=== PATIENT | female | born 1985 | race Caucasian/White ===

== ENCOUNTER 2016-08-14 05:52 | Outpatient (CLI) | payer OTHER ==
[~2016-08-14] VITALS: Ht 162.6 cm; Wt 82.1 kg
[~2016-08-14 05:52] MED LIST: AC500T PO; ACET-2267 PO; ACHD5005 PO; AMOX500C2 PO; AMX500CIP PO; Aleve; BCP; Benadryl; CIPR500T78 PO; CPR250T PO; DIPH25CA79 PO; FAMO-119 PO; HYDR-2941 PO; HYDR-34; HYDR-3812 PO; HYDR-757 PO; IBP600T1 PO; IBUP-15 PO; IBUP-1780 PO; LORA10TA76 PO; METR500T PO; NAPR500T PO; OMEP-10 PO; OXYC-109 PO; OXYC-12 PO; PHEN37.555 PO; PROP1TAB77; SULF1TAB35 PO; TRM50T PO; ZLP10T PO; prednisone
[2016-08-14] MEDS ORDERED: HYOS0.1216 PO (16:31)
[2016-08-14] MEDS ORDERED: ONDN4T PO (16:31)
[2016-08-14] MEDS ORDERED: HYDR-3812 PO (16:31)
[2016-08-14] MEDS ORDERED: OMEP20TA7 PO (16:31)
[2016-08-14] MEDS ORDERED: ESCI10TA PO (16:31)
[2016-08-14] MEDS ORDERED: FAMO-119 PO (16:31)
== END 2016-08-14 16:33 ==
LOC: PREOP 05:52
PROVIDERS: ATTEND Surgery
DX: Z01.818 Encounter for other preprocedural examination (principal); K21.9 Gastro-esophageal reflux disease without esophagitis; R13.10 Dysphagia, unspecified

== ENCOUNTER 2016-08-25 09:48 | Day surgery (SDC) | payer OTHER ==
[~2016-08-25] VITALS: Ht 162.6 cm; Wt 82.1 kg
[~2016-08-25 09:48] MED LIST changes: +ESCI10TA PO; +HYOS0.1216 PO; +OMEP20TA7 PO; +ONDN4T PO
[2016-08-25] MEDS ORDERED: FLUMAZENIL (ROMAZICON) 0.1 MG/ML 5 ML VIAL INJ PRN (10:00)
[2016-08-25] MEDS ORDERED: NS IV 500 ML 500 ML IV ONE (10:00)
[2016-08-25] MEDS ORDERED: NALOXONE 0.4 MG/ML 1 ML (NARCAN) VIAL IVP PRN (10:00)
[2016-08-25 10:04] VITALS: BP 117/86
[2016-08-25] MEDS ORDERED: CLIN300C11 PO (10:08)
--- NOTE | 2016-08-25 10:09 | Conscious Sedation/ASA ---
Conscious Sedation Pre-Proced ASA Class: 2 Airway Mallampati Classification: ([place] appropriate class) I. II. III, IV Lungs Heart ASA score ASA 1: a normal healthy patient ASA 2: a patient with a mild systemic disease (mid diabetes, controlled hypertension, obesity ASA 3: a patient with a severe systemic disease that limits activity (angina , COPD, prior Myocardial infarction) ASA 4: a patient with an incapacitating disease that is a constant threat to life (CHF, renal failure) ASA 5: a moribund patient not expected to survive 24 hrs. (ruptured aneurysm) ASA 6: a declared brain patient whose organs are being harvested. For emergent operations, add the letter E after the classification Grade 1 Sedation Plan: Discussed options with patient/fam Note The patient is an appropriate candidate to undergo the planned procedure, sedation, and anesthesia. The patient immediately re-assessed prior to indication. BJ KAUFMAN MD Aug 25, 2016 10:09 am
[2016-08-25] MEDS ORDERED: fentaNYL INJECTION 100 MCG/2 ML AMP ONE (11:16)
[2016-08-25] MEDS ORDERED: MIDAZOLAM 2 MG/2 ML (VERSED) VIAL ONE ×4 (11:16→11:17)
[2016-08-25] MEDS: MIDAZOLAM 2 MG/2 ML (VERSED) VIAL IVP PRN ×4 (11:20→11:29)
[2016-08-25] MEDS: fentaNYL INJECTION 100 MCG/2 ML AMP IVP PRN ×2 (11:21→11:28)
--- NOTE | 2016-08-25 11:37 | Endoscopy Procedure Report ---
Endoscopy Report Date: Aug 25, 2016 Preoperative Diagnosis: epigastric pain. Dysphagia Study Performed: Upper Endoscopy Procedure Instrument: Endoscope Endo Procedure/Findings Findings 1.: Hiatal Hernia, Gastric Ulcer, Gastritis Recommendations: Recommendations: 1.: Start Medication(s) Copy Copies To 1: ALONZO GOLDBERG MD, XAVIER M MD Aug 25, 2016 11:37 am
--- NOTE | 2016-08-25 11:39 | Discharge Inst-Simple/Standard ---
Discharge Inst-Standard Discharge Medications New, Converted or Re-Newed RX: Other Patient Instructions/Follow Up Plan of Care/Instructions/FU: follow-up with her physician Activity as Tolerated: Yes Discharge Diet: No Restrictions BJ KAUFMAN MD Aug 25, 2016 11:39 am
--- NOTE | 2016-08-25 12:08 | OPERATIVE REPORT ---
DATE OF SERVICE: 08/25/2016 PROCEDURE: Upper gastrointestinal endoscopy with antral biopsy. SURGEON: Dr. Kaufman. INDICATIONS FOR PROCEDURE: This patient came in for upper endoscopy to evaluate epigastric pain and intermittent dysphagia. Informed consent was obtained after reviewing the procedure in detail. DESCRIPTION OF PROCEDURE: She was placed in left lateral decubitus position, and her vital signs were monitored. Conscious sedation was achieved using Versed and Fentanyl. The flexible gastroscope was introduced down the esophagus, past the stomach, into the proximal duodenum. FINDINGS: ESOPHAGUS: 1. Quite tortuous, normal variation in anatomy. 2. Grade 2 esophagitis. STOMACH: 1. Multiple distal gastric ulcers. 2. Severe gastritis in a streaky fashion involving the distal stomach. Antral biopsy was obtained for Helicobacter. DUODENDUM: A few, shallow erosions were found along the first part. She tolerated the procedure well and was taken back to the nursing area in a stable condition. IMPRESSION: Epigastric pain, dysphagia. No stricture. Esophagitis and gastric ulcers. Helicobacter status pending. Job ID: [id number] DocumentID: [id number] Dictated Date: 08/25/2016 11:34:38 [employer]aker Date: 08/25/2016 12:08:25 Dictated By: BJ KAUFMAN MD [facility]
[2016-08-25 12:10] VITALS: BP 117/79
[2016-08-25 12:45] VITALS: BP 111/56
[2016-08-25 12:57] VITALS: BP 111/56
== END 2016-08-25 13:00 | disposition home or self-care (01) ==
LOC: ENDO 09:48
PROVIDERS: ATTEND Surgery
DX: K25.9 Gastric ulcer, unspecified as acute or chronic, without hemorrhage or perforation (principal); K29.70 Gastritis, unspecified, without bleeding; K20.9 Esophagitis, unspecified
CPT/HCPCS: 84703; 88305

== ENCOUNTER 2016-09-04 14:09 | Emergency (ER) | payer SELFPAY ==
[~2016-09-04] VITALS: Ht 162.6 cm; Wt 83.0 kg
[~2016-09-04 14:09] MED LIST changes: +CLIN300C11 PO
[2016-09-04] MEDS ORDERED: ESOM20TA PO (14:23)
[2016-09-04 14:48] LABS: BASOPHILS % (AUTO) 0 % (0-10); EOSINOPHILS # (AUTO) 0.1 10^3/uL (0.0-0.3); EOSINOPHILS % (AUTO) 1 % (0-10); LYMPHOCYTES # (AUTO) 2.2 X 10^3 (1.0-4.0); LYMPHOCYTES % (AUTO) 37 % (12-44); MEAN CORPUSCULAR HEMOGLOBIN 31 PG (25-34); MEAN CORPUSCULAR HGB CONC 34 G/DL (32-36); MEAN CORPUSCULAR VOLUME 92 FL (80-99); MEAN PLATELET VOLUME 9.8 FL (7.4-10.4); MONOCYTES # (AUTO) 0.7 X 10^3 (0.0-1.0); MONOCYTES % (AUTO) 11 % (0-12); NEUTROPHILS % (AUTO) 51 % (42-75); PLATELET COUNT 253 10^3/uL (130-400); RED CELL DISTRIBUTION WIDTH 12.3 % (10.0-14.5); WHITE BLOOD COUNT 5.9 10^3/uL (4.3-11.0)
[2016-09-04 15:13] LABS: ALANINE AMINOTRANSFERASE 27 U/L (0-55); ALBUMIN 4.7 G/DL (3.2-4.5); ANION GAP 5 MMOL/L (5-14); ASPARTATE AMINO TRANSFERASE 16 U/L (5-34); BLOOD UREA NITROGEN 13 MG/DL (7-18); BUN/CREATININE RATIO 18; CALCIUM 9.4 MG/DL (8.5-10.1); CARBON DIOXIDE 29 MMOL/L (21-32); CHLORIDE 106 MMOL/L (98-107); CREATININE SERUM 0.74 MG/DL (0.60-1.30); GFR ESTIMATED > 60; GLUCOSE 86 MG/DL (70-105); LIPASE 31 U/L (8-78); POTASSIUM 3.8 MMOL/L (3.6-5.0); SODIUM 140 MMOL/L (135-145)
--- NOTE | 2016-09-04 15:29 | ED Abdominal Pain ---
General Chief Complaint: Abdominal/GI Problems Stated Complaint: ABD PAIN Nursing Triage Note: C/O EPIGASTRIC PAIN X 3 DAYS, PATIENT REPORTS HAD AN UPPER GI DONE ON THE August AND TOLD SHE HAD ULCERS AND WAS GIVEN NEXIUM Sepsis Screen: No Definite Risk Source of Information: Patient Exam Limitations: No Limitations History of Present Illness Time Seen By Provider: 15:24 Initial Comments The patient is a 31-year-old white female who presents to the emergency room with a tale of WOE beginning 2 years ago. 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 She reports that several weeks ago they were in [place] and she had an attack which made her think she was having a heart attack. She remembered reading that this could in fact be caused by esophageal spasm and even respond to nitroglycerin. She went to a [place] emergency room where she was worked up. She was assured that there was no heart attack and states that she was doped up in order to allow her to return home. She was then seen by her physician and referred to Dr. Fairbanks who performed an upper endoscopy. She also notes that she was told in [place] that she had a polyp in her gallbladder and perhaps that was causing a problem. Dr. Fairbanks reported that the esophagus had considerable inflammation and even ulcers. She was placed on Nexium by ALONZO Seaman and has taken it for a week without any improvement in her symptomatology. She reports that she feels very bloated at this time. There has been no change in her bowel movements. Timing/Duration: 1 Day, Other (2 years) Severity/Quality: Moderate, Severe Location: RUQ, Epigastric Modifying Factors: Improves With Analgesics, Improves With Antacids Allergies and Home Medications Allergies Coded Allergies: No Known Drug Allergies (Verified , 04/09/07) Home Medications Escitalopram Oxalate 10 Mg Tablet, 10 MG PO DAILY, (Reported) Esomeprazole Magnesium 20 Mg Tablet.dr, 20 MG PO, (Reported) Review of Systems Constitutional: see HPI EENTM: No Symptoms Reported Respiratory: No Symptoms Reported Cardiovascular: No Symptoms Reported Gastrointestinal: See HPI, Abdomen Distended, Blood Streaked Stools, Difficulty Swallowing Genitourinary: No Symptoms Reported Musculoskeletal: no symptoms reported Skin: no symptoms reported Psychiatric/Neurological: No Symptoms Reported Endocrine: No Symptoms Reported Hematologic/Lymphatic: No Symptoms Reported Past Ujsiskt-Agvjdq-Yxaxgm Hx Patient Social History Alcohol Use: Rarely Uses Recreational Drug Use: Yes (OCCASSIONAL SMOKES MARIJUANA) Type Used: Cigarettes Recent Foreign Travel: No Contact w/Someone Who Travel: No Recent Infectious Disease Expo: No Recent Hopitalizations: No Immunizations Up To Date Tetanus Booster (TDap): Unknown Seasonal Allergies Seasonal Allergies: Yes Surgeries HX Surgeries: Yes ( bilat salpingectomy) Surgeries: Tubal Ligation Respiratory Hx Respiratory Disorders: No Cardiovascular Hx Cardiac Disorders: No Neurological Hx Neurological Disorders: No Reproductive System Hx Reproductive Disorders: Yes (Salpingectomy bilat) Sexually Transmitted Disease: No 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 Genitourinary Hx Genitourinary Disorders: No Genitourinary Disorders: Kidney Infection Gastrointestinal Hx Gastrointestinal Disorders: No Gastrointestinal Disorders: Gastroesophageal Reflux Musculoskeletal Hx Musculoskeletal Disorders: Yes (chronic left hip pain) Musculoskeletal Disorders: Arthritis Endocrine Hx Endocrine Disorders: No HEENT HX ENT Disorders: No (tooth infection) Cancer Hx Cancer: No Psychosocial Hx Psychiatric Problems: No Integumentary HX Skin/Integumentary Disorder: No Blood Transfusions Hx Blood Disorders: No Family Medical History Significant Family History: No Pertinent Family Hx Physical Exam Vital Signs VS - Last 72 Hours, by Label 09/04/16 14:19 Temp 98.2 Pulse 97 Resp 18 B/P (MAP) 105/81 Pulse Ox 100 Capillary Refill : Less Than 3 Seconds General Appearance: mild distress HEENT: normal ENT inspection Neck: full range of motion Respiratory: chest non-tender, lungs clear, normal breath sounds, no respiratory distress, no accessory muscle use Cardiovascular: normal peripheral pulses, regular rate, rhythm, no edema, no gallop, no JVD, no murmur Gastrointestinal: tenderness (mild pain to palpation without guarding or rebound primarily at the epigastrium and right upper quadrant) Extremities: normal range of motion, non-tender, normal inspection, no pedal edema, no calf tenderness, normal capillary refill, pelvis stable Back: normal inspection, no CVA tenderness Skin: normal color, warm/dry Lymphatic: no adenopathy Progress/Results/Core Measures Results/Orders Lab Results Laboratory Tests Test 09/04/16 14:33 Range/Units White Blood Count 5.9 4.3-11.0 10^3/uL Red Blood Count 4.40 4.35-5.85 10^6/uL Hemoglobin 13.7 11.5-16.0 G/DL Hematocrit 41 35-52 % Mean Corpuscular Volume 92 80-99 FL Mean Corpuscular Hemoglobin 31 25-34 PG Mean Corpuscular Hemoglobin Concent 34 32-36 G/DL Red Cell Distribution Width 12.3 10.0-14.5 % Platelet Count 253 130-400 10^3/uL Mean Platelet Volume 9.8 7.4-10.4 FL Neutrophils (%) (Auto) 51 42-75 % Lymphocytes (%) (Auto) 37 12-44 % Monocytes (%) (Auto) 11 0-12 % Eosinophils (%) (Auto) 1 0-10 % Basophils (%) (Auto) 0 0-10 % Neutrophils # (Auto) 3.0 1.8-7.8 X 10^3 Lymphocytes # (Auto) 2.2 1.0-4.0 X 10^3 Monocytes # (Auto) 0.7 0.0-1.0 X 10^3 Eosinophils # (Auto) 0.1 0.0-0.3 10^3/uL Basophils # (Auto) 0.0 0.0-0.1 10^3/uL Sodium Level 140 135-145 MMOL/L Potassium Level 3.8 3.6-5.0 MMOL/L Chloride Level 106 98-107 MMOL/L Carbon Dioxide Level 29 21-32 MMOL/L Anion Gap 5 5-14 MMOL/L Blood Urea Nitrogen 13 7-18 MG/DL Creatinine 0.74 0.60-1.30 MG/DL Estimat Glomerular Filtration Rate > 60 BUN/Creatinine Ratio 18 Glucose Level 86 70-105 MG/DL Calcium Level 9.4 8.5-10.1 MG/DL Total Bilirubin 1.0 0.1-1.0 MG/DL Aspartate Amino Transf (AST/SGOT) 16 5-34 U/L Alanine Aminotransferase (ALT/SGPT) 27 0-55 U/L Alkaline Phosphatase 53 40-136 U/L Total Protein 7.0 6.4-8.2 G/DL Albumin 4.7 H 3.2-4.5 G/DL Lipase 31 8-78 U/L My Orders Orders - KATHERINE MEDINA MD Cbc With Automated Diff (09/04/16 14:22) Comprehensive Metabolic Panel (09/04/16 14:22) Lipase (09/04/16 14:22) Ua Culture If Indicated (09/04/16 14:22) Sucralfate Tablet (Carafate Tablet) (09/04/16 15:45) Vital Signs/I&O Vital Sign - Last 12Hours 09/04/16 14:19 Temp 98.2 Pulse 97 Resp 18 B/P (MAP) 105/81 Pulse Ox 100 Blood Pressure Mean: 89 Departure Communication Progress Notes [address] Fairbanks. He confirmed that he had seen severe inflammation and ulceration in the distal esophagus. He had started the Nexium one week ago. I allowed that she had not noted any improvement at this point. We agreed to add Gaviscon which will be done. He will also attempt to arrange a gastroenterology consultation and most likely in [place] and he will call her with the information when he has done so. Impression Impression: Primary Impression: severe distal esophagitis Disposition: HOME, SELF-CARE Condition: Stable/Unchanged Departure-Patient Inst. Decision time for Depature: 16:11 Referrals: ALONZO GOLDBERG MD (PCP/Family) Primary Care Physician Add. Discharge Instructions: All discharge instructions reviewed with patient and/or family. Voiced understanding. Continue Nexium. Add Gaviscon for times daily Dr. Fairbanks will arrange gastroenterology consultation for you and will call you back when he has done so. Scripts Sucralfate (Sucralfate) 1 Gm Tablet 1 GM PO 4 times a day, #20 TAB Crush with spoon and make a slurry with water Prov: KATHERINE MEDINA MD 09/04/16 KATHERINE MEDINA MD September 04, 2016 15:29
[2016-09-04] MEDS ORDERED: SUCRALFATE 1 GM (CARAFATE) TAB PO ONE (15:45)
[2016-09-04] MEDS ORDERED: SUCR1TAB PO (16:24)
[2016-09-04 16:32] VITALS: BP 120/83
== END 2016-09-04 16:32 | disposition home or self-care (01) ==
LOC: EDUNIT# 14:09 → ER 14:13
DX: K20.9 Esophagitis, unspecified (principal)
CPT/HCPCS: 36415; 80053; 83690; 85025

== ENCOUNTER 2016-12-19 12:05 | Emergency (ER) | payer OTHER ==
[~2016-12-19 12:05] MED LIST changes: +ESOM20TA PO; +HYOS-20 PO; -HYOS0.1216 PO; +SUCR1TAB PO
== END 2016-12-19 12:50 | disposition left against medical advice (07) ==
LOC: EDUNIT# 12:05 → ER 12:07
DX: R10.9 Unspecified abdominal pain (principal)

== ENCOUNTER → 2017-08-19 | Outpatient (CLI) | payer SELFPAY ==
[~2017-08-19] MED LIST changes: -HYDR-3812 PO; +NAPR-1071 PO; -NAPR500T PO
--- NOTE | 2017-08-19 13:19 | Diagnostic Imaging Report ---
INDICATION: Hurt thumb 3 weeks ago now with swelling and bruising TECHNIQUE: Three views of the right hand. CORRELATION STUDY: None FINDINGS: There is normal alignment and appearance of the osseous structures of the hand. The joint spaces are maintained. There is no acute fracture. Soft tissues are unremarkable. IMPRESSION: 1. Negative for acute bony abnormality of the right hand. Dictated by: Dictated on workstation # [id number]
== END ==
LOC: RAD 10:01
PROVIDERS: ATTEND Family Medicine
DX: S60.011A Contusion of right thumb without damage to nail, initial encounter (principal)
CPT/HCPCS: 73130

== ENCOUNTER 2018-03-14 13:45 | Emergency (ER) | payer SELFPAY ==
[~2018-03-14] VITALS: Ht 162.6 cm; Wt 82.6 kg
[~2018-03-14 13:45] MED LIST changes: +HYDR-4226 PO
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
[2018-03-14 15:50] VITALS: BP 110/56
== END 2018-03-14 15:50 | disposition left against medical advice (07) ==
LOC: EDUNIT# 13:45 → ER 13:48
DX: M25.562 Pain in left knee (principal); M79.631 Pain in right forearm; R51 Headache; K21.9 Gastro-esophageal reflux disease without esophagitis; Z98.51 Tubal ligation status; Z87.448 Personal history of other diseases of urinary system; Z90.722 Acquired absence of ovaries, bilateral; V89.2XXA Person injured in unspecified motor-vehicle accident, traffic, initial encounter
CPT/HCPCS: 99282

== ENCOUNTER → 2018-04-12 | Outpatient (CLI) | payer SELFPAY ==
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
== END ==
LOC: RAD 12:29
PROVIDERS: ATTEND Family Medicine
DX: M40.202 Unspecified kyphosis, cervical region (principal); M79.631 Pain in right forearm; M25.561 Pain in right knee; M25.562 Pain in left knee; V82 Occupant of powered streetcar injured in transport accident
CPT/HCPCS: 72040; 73090

== ENCOUNTER → 2018-04-16 | Outpatient (CLI) | payer SELFPAY ==
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
== END ==
LOC: RAD 14:21
PROVIDERS: ATTEND Family Medicine
DX: R51 Headache (principal); M54.2 Cervicalgia; V89.2XXA Person injured in unspecified motor-vehicle accident, traffic, initial encounter
CPT/HCPCS: 70450; 72125

== ENCOUNTER 2018-06-23 13:34 | Outpatient (RCR) | payer MEDICAID | END 2018-07-07 14:38 | disposition home or self-care (01) | PROVIDERS: ATTEND Family Medicine | DX: M25.562 Pain in left knee (principal) ==

== ENCOUNTER 2019-05-07 10:02 | Observation (INO) | payer MEDICAID ==
[~2019-05-07] VITALS: Ht 165.1 cm; Wt 84.9 kg
[2019-05-07] MEDS ORDERED: NS IV 1000 ML 1,000 ML IV SCH (10:30)
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
[2019-05-07 10:41] LABS: BASOPHILS % (AUTO) 0 % (0-10); BILIRUBIN,URINE NEGATIVE (NEGATIVE); CLARITY,URINE CLEAR; COLOR,URINE YELLOW; EOSINOPHILS # (AUTO) 0.1 10^3/uL (0.0-0.3); EOSINOPHILS % (AUTO) 2 % (0-10); GLUCOSE, URINE (UA) NEGATIVE (NEGATIVE); HEMATOCRIT 41 % (35-52); HEMOGLOBIN 13.5 G/DL (11.5-16.0); KETONES,URINE NEGATIVE (NEGATIVE); LEUKOCYTE ESTERASE ,URINE NEGATIVE (NEGATIVE); LYMPHOCYTES # (AUTO) 2.3 X 10^3 (1.0-4.0); LYMPHOCYTES % (AUTO) 33 % (12-44); MEAN CORPUSCULAR HEMOGLOBIN 31 PG (25-34); MEAN CORPUSCULAR HGB CONC 33 G/DL (32-36); MEAN CORPUSCULAR VOLUME 92 FL (80-99); MONOCYTES # (AUTO) 0.9 X 10^3 (0.0-1.0); MONOCYTES % (AUTO) 13 % (0-12); NEUTROPHILS # (AUTO) 3.6 X 10^3 (1.8-7.8); NEUTROPHILS % (AUTO) 52 % (42-75); NITRITE,URINE NEGATIVE (NEGATIVE); PLATELET COUNT 254 10^3/uL (130-400); PROTEIN,URINE NEGATIVE (NEGATIVE); RED CELL DISTRIBUTION WIDTH 12.3 % (10.0-14.5); WHITE BLOOD COUNT 6.8 10^3/uL (4.3-11.0)
[2019-05-07 10:55] LABS: ALANINE AMINOTRANSFERASE 11 U/L (0-55); ALBUMIN 4.4 GM/DL (3.2-4.5); ALKALINE PHOSPHATASE 53 U/L (40-136); BILIRUBIN,TOTAL 1.1 MG/DL (0.1-1.0); BUN/CREATININE RATIO 15; CARBON DIOXIDE 21 MMOL/L (21-32); CHLORIDE 108 MMOL/L (98-107); CREATININE SERUM 0.67 MG/DL (0.60-1.30); GFR ESTIMATED > 60; GLUCOSE 98 MG/DL (70-105); POTASSIUM 3.7 MMOL/L (3.6-5.0); SALICYLATE < 5.0 MG/DL (5.0-20.0); SODIUM 140 MMOL/L (135-145); TOTAL PROTEIN 6.8 GM/DL (6.4-8.2)
[2019-05-07 10:58] LABS: ACETAMINOPHEN < 10 UG/ML (10-30)
[2019-05-07 10:59] LABS: AMPHETAMINE SCREEN, URINE POSITIVE (NEGATIVE); BARBITURATE SCREEN URINE NEGATIVE (NEGATIVE); BENZODIAZEPINES SCREEN URINE POSITIVE (NEGATIVE); CANNABINOID SCREEN, URINE POSITIVE (NEGATIVE); COCAINE SCREEN URINE NEGATIVE (NEGATIVE); METHADONE STAT NEGATIVE (NEGATIVE); METHAMPHETAMINE SCREEN URINE S POSITIVE (NEGATIVE); OPIATE SCREEN URINE NEGATIVE (NEGATIVE); OXYCODONE STAT NEGATIVE (NEGATIVE); PROPOXYPHENE STAT NEGATIVE (NEGATIVE); TRICYCLIC ANTIDEPRESSANTS SCRE NEGATIVE (NEGATIVE)
[2019-05-07 11:05] LABS: BACTERIA,URINE NEGATIVE /HPF; SQUAMOUS EPITHELIAL CELL,UR RARE /HPF
--- NOTE | 2019-05-07 12:40 | NUR ---
SAQIB ROBERTSON admitted to room 433-1, with an admitting diagnosis of OVERDOSE, on 05/07/19 from ER via CAR, accompanied by ER STAFF.SAQIB ROBERTSON introduced to surroundings, call light, bed controls, phone, TV, temperature control, lights, meal times, smoking policy, visitor policy, side rail policy, bathrooms and showers. Patient Rights given to patient in the handbook. SAQIB ROBERTSON verbalizes understanding that [facility] is not responsible for the loss or damage to any personal effects or valuables that are kept in the patients posession during their hospitalization. The following Patient Care Plans were discussed with the PT: Discharge Planning, NUT <BODY REQUIR, ANX, HIGH RISK VIOLENCE, ALT HEALTH MAINT, NONCOPLIANCE, INEFF DENIAL, DENSIVE COPYING, HIGH RISK INJURY. SAQIB ROBERTSON verbalizes understanding of Interdisciplinary Patient Education. Patient and/or family were informed about the Rapid Response Team and its purpose. CAME TO FLOOR FROM ER WITH SL IN R HAND -- IVFS STARTED WHEN TO ROOM ,(NOTE THT ER HAD CHARTED IVF HANGING NOW) -- POISON CONTROL CALLED AND TALKD TO THIS RN -- PT WAS MADE CONFIDENTIAL -- COLLECTIONS ANALYST AWARE --
[2019-05-07 12:43] VITALS: BP 118/78
[2019-05-07] MEDS ORDERED: CATHETER FLUSH 10 ML SYR IV PRN (13:15)
--- NOTE | 2019-05-07 14:42 | NUR ---
MOVED TO 430 -- TO SHARE SITTER WITH 431
[2019-05-07 15:55] VITALS: BP 110/76
--- NOTE | 2019-05-07 15:58 | History & Physicial ---
History of Present Illness History of Present Illness Reason for visit/HPI 34-year-old female presents to [facility] emergency department after apparently taking 20 tablets of 50 mg Ultram and approximately 7 tablets of a 1 mg Ativan last evening. She apparently was upset with her with regards to infidelity. Patient does not have a history of any previous drug overdose and she has no current suicidal ideation. Date of Admission May 07, 2019 at 10:57 Date Seen by a Provider: May 07, 2019 Time Seen by a Provider: 16:10 I consulted on this patient on 05/07/19 15:54 Attending Physician Alonzo Acharya MD Admitting Physician Consult Allergies and Home Medications Allergies Coded Allergies: No Known Drug Allergies (Verified , 04/09/07) Home Medications Escitalopram Oxalate 10 Mg Tablet, 10 MG PO DAILY, (Reported) Sucralfate 1 Gm Tablet, 1 GM PO 4 times a day Crush with spoon and make a slurry with water Prescribed by: KATHERINE MEDINA on 09/04/16 1749 Patient Home Medication List Home Medication List Reviewed: Yes Past Qvlkaza-Pzjjpf-Kkpjzo Hx Patient Social History Marrital Status: Number of Children: 3 Alcohol Use: Denies Use Recreational Drug Use: Yes (OCCASSIONAL SMOKES MARIJUANA) Smoking Status: Current Everyday Smoker Type Used: Cigarettes Recent Foreign Travel: No Contact w/other who traveled: No Recent Hopitalizations: No Recent Infectious Disease Expo: No Immunizations Up To Date Tetanus Booster (TDap): Unknown Seasonal Allergies Seasonal Allergies: Yes Surgeries Yes ( bilat salpingectomy) Tubal Ligation Respiratory No Cardiovascular No Neurological Yes Concussion Reproductive System Hx Reproductive Disorders: Yes (Salpingectomy bilat) Sexually Transmitted Disease: No 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 Genitourinary Yes Kidney Infection Gastrointestinal No Gastroesophageal Reflux Musculoskeletal Yes (chronic left hip pain) Arthritis Endocrine History of Endocrine Disorders: No HEENT History of HEENT Disorders: No Cancer No Psychosocial History of Psychiatric Problem: Yes Behavioral Health Disorders: Anxiety Integumentary History of Skin or Integumenta: No Blood Transfusions History of Blood Disorders: No Family Medical History Significant Family History: No Pertinent Family Hx Review of Systems Constitutional: see HPI Physical Exam Vital Signs Vital Signs - First Documented 05/07/19 05/07/19 10:05 12:40 Temp 35.9 Pulse 63 Resp 20 B/P (MAP) 128/86 (100) Pulse Ox 95 O2 Delivery Room Air O2 Flow Rate 98.00 Capillary Refill : Less Than 3 Seconds Height, Weight, BMI Height: 5'4.00" Weight: 182lbs. 0.0oz. 82.898907jn; 31.14 BMI Method:Stated General Appearance: No Apparent Distress Eyes: Bilateral Eye Normal Inspection HEENT: Moist Mucous Membranes Neck: Full Range of Motion Respiratory: Lungs Clear Cardiovascular: Regular Rate, Rhythm; No No Murmur, No Tachycardia Gastrointestinal: Normal Bowel Sounds, Soft; No Distended, No Guarding Rectal: Deferred Back: Normal Inspection Extremity: Normal Capillary Refill Neurologic/Psychiatric: Alert, Oriented x3; No Disoriented Skin: Normal Color Assessment/Plan Assessment and Plan 1. Drug overdose of tramadol as well as Ativan -Patient admitted for observation -Monitor cardiopulmonary status 2. Depressiontreated in the past -Will restart antidepressants prior to dismissal or after dismissal Admission Diagnosis 1. Drug overdose of tramadol as well as Ativan 2. Depressiontreated in the past Admission Status: Observation Reason for Inpatient Admission: Cardiopulmonary monitoring as recommended by poison control ALONZO ACHARYA MD May 07, 2019 15:58
[2019-05-07] MEDS: NS IV 1000 ML 1,000 ML IV SCH (17:21)
[2019-05-07 20:30] VITALS: BP 97/64
[2019-05-07 23:36] VITALS: BP 96/51
[2019-05-08] MEDS: NS IV 1000 ML 1,000 ML IV SCH (00:41)
[2019-05-08 03:47] VITALS: BP 107/67
[2019-05-08 06:06] LABS: BASOPHILS % (AUTO) 0 % (0-10); EOSINOPHILS # (AUTO) 0.1 10^3/uL (0.0-0.3); EOSINOPHILS % (AUTO) 3 % (0-10); HEMATOCRIT 36 % (35-52); HEMOGLOBIN 11.9 G/DL (11.5-16.0); LYMPHOCYTES % (AUTO) 35 % (12-44); MEAN CORPUSCULAR HEMOGLOBIN 31 PG (25-34); MEAN CORPUSCULAR HGB CONC 33 G/DL (32-36); MEAN CORPUSCULAR VOLUME 94 FL (80-99); MEAN PLATELET VOLUME 9.8 FL (7.4-10.4); MONOCYTES # (AUTO) 0.7 X 10^3 (0.0-1.0); MONOCYTES % (AUTO) 12 % (0-12); NEUTROPHILS # (AUTO) 2.8 X 10^3 (1.8-7.8); NEUTROPHILS % (AUTO) 50 % (42-75); PLATELET COUNT 184 10^3/uL (130-400); RED CELL DISTRIBUTION WIDTH 12.2 % (10.0-14.5); WHITE BLOOD COUNT 5.5 10^3/uL (4.3-11.0)
[2019-05-08 06:30] LABS: ALANINE AMINOTRANSFERASE 10 U/L (0-55); ALBUMIN 3.6 GM/DL (3.2-4.5); ALKALINE PHOSPHATASE 40 U/L (40-136); BUN/CREATININE RATIO 13; CALCIUM 8.1 MG/DL (8.5-10.1); CARBON DIOXIDE 23 MMOL/L (21-32); CHLORIDE 107 MMOL/L (98-107); CREATININE SERUM 0.63 MG/DL (0.60-1.30); GFR ESTIMATED > 60; GLUCOSE 87 MG/DL (70-105); POTASSIUM 3.4 MMOL/L (3.6-5.0); SODIUM 137 MMOL/L (135-145); TOTAL PROTEIN 5.6 GM/DL (6.4-8.2)
--- NOTE | 2019-05-08 06:41 | Progress Note ---
Subjective Date Seen by a Provider: May 08, 2019 Time Seen by a Provider: 06:25 Subjective/Events-last exam Patient more alert this morning and communicating without falling asleep. She would like to have regular diet as she is hungry. She does currently have a Ray catheter in and would like to have it removed. She informs me that yesterday was not a suicide attempt but more of a frustration due to her "nagging her." Objective Exam Vital Signs Date Time Temp Pulse Resp B/P (MAP) Pulse Ox O2 Delivery O2 Flow Rate FiO2 05/08/19 03:47 36.0 67 18 107/67 (80) 97 Room Air 05/08/19 01:00 62 05/07/19 23:36 36.4 80 18 96/51 (66) 94 Room Air 05/07/19 20:30 36.6 67 16 97/64 (75) 97 Room Air 05/07/19 20:00 Room Air 05/07/19 19:00 73 05/07/19 15:55 36.7 69 16 110/76 (87) 97 Room Air 05/07/19 14:13 69 05/07/19 12:43 36.4 72 20 118/78 98 Room Air 05/07/19 12:40 97 Room Air 98.00 05/07/19 12:35 35.9 70 20 113/73 (100) 98 05/07/19 10:05 35.9 63 20 128/86 (100) 95 I & O 05/08/19 07:00 Intake Total 1300 ml Output Total 650 ml Balance 650 ml Capillary Refill : Less Than 3 Seconds General Appearance: No Apparent Distress Neck: Non Tender Respiratory: Lungs Clear Cardiovascular: Regular Rate, Rhythm Gastrointestinal: soft Results Lab Laboratory Tests 05/07/19 10:10: White Blood Count 6.8, Red Blood Count 4.43, Hemoglobin 13.5, Hematocrit 41, Mean Corpuscular Volume 92, Mean Corpuscular Hemoglobin 31, Mean Corpuscular Hemoglobin Concent 33, Red Cell Distribution Width 12.3, Platelet Count 254, Mean Platelet Volume 10.0, Neutrophils (%) (Auto) 52, Lymphocytes (%) (Auto) 33, Monocytes (%) (Auto) 13H, Eosinophils (%) (Auto) 2, Basophils (%) (Auto) 0, Neutrophils # (Auto) 3.6, Lymphocytes # (Auto) 2.3, Monocytes # (Auto) 0.9, Eosinophils # (Auto) 0.1, Basophils # (Auto) 0.0, Urine Color YELLOW, Urine Clarity CLEAR, Urine pH 6.0, Urine Specific [place] >=1.030, Urine Protein NEGATIVE, Urine Glucose (UA) NEGATIVE, Urine Ketones NEGATIVE, Urine Nitrite NEGATIVE, Urine Bilirubin NEGATIVE, Urine Urobilinogen 1.0, Urine Leukocyte Esterase NEGATIVE, Urine RBC (Auto) NEGATIVE, Urine RBC NONE, Urine WBC NONE, Urine Squamous Epithelial Cells RARE, Urine Crystals NONE, Urine Bacteria NEGATIVE, Urine Casts NONE, Urine Mucus NEGATIVE, Urine Culture Indicated NO, Sodium Level 140, Potassium Level 3.7, Chloride Level 108H, Carbon Dioxide Level 21, Anion Gap 11, Blood Urea Nitrogen 10, Creatinine 0.67, Estimat Glomerular Filtration Rate > 60, BUN/Creatinine Ratio 15, Glucose Level 98, Calcium Level 9.0, Corrected Calcium 8.7, Total Bilirubin 1.1H, Aspartate Amino Transf (AST/SGOT) 14, Alanine Aminotransferase (ALT/SGPT) 11, Alkaline Phosphatase 53, Total Protein 6.8, Albumin 4.4, Salicylates Level < 5.0L, Urine Opiates Screen NEGATIVE, Urine Oxycodone Screen NEGATIVE, Urine Methadone Screen NEGATIVE, Urine Propoxyphene Screen NEGATIVE, Acetaminophen Level < 10L, Urine Barbiturates Screen NEGATIVE, Ur Tricyclic Antidepressants Screen NEGATIVE, Urin e Phencyclidine Screen NEGATIVE, Urine Amphetamines Screen POSITIVEH, Urine Methamphetamines Screen POSITIVEH, Urine Benzodiazepines Screen POSITIVEH, Urine Cocaine Screen NEGATIVE, Urine Cannabinoids Screen POSITIVEH, Serum Alcohol < 10 05/08/19 05:37: White Blood Count 5.5, Red Blood Count 3.86L, Hemoglobin 11.9, Hematocrit 36, Mean Corpuscular Volume 94, Mean Corpuscular Hemoglobin 31, Mean Corpuscular Hemoglobin Concent 33, Red Cell Distribution Width 12.2, Platelet Count 184, Mean Platelet Volume 9.8, Neutrophils (%) (Auto) 50, Lymphocytes (%) (Auto) 35, Monocytes (%) (Auto) 12, Eosinophils (%) (Auto) 3, Basophils (%) (Auto) 0, Ne utrophils # (Auto) 2.8, Lymphocytes # (Auto) 2.0, Monocytes # (Auto) 0.7, Eosinophils # (Auto) 0.1, Basophils # (Auto) 0.0, Sodium Level 137, Potassium Level 3.4L, Chloride Level 107, Carbon Dioxide Level 23, Anion Gap 7, Blood Urea Nitrogen 8, Creatinine 0.63, Estimat Glomerular Filtration Rate > 60, BUN/Creatinine Ratio 13, Glucose Level 87, Calcium Level 8.1L, Corrected Calcium 8.4L, Total Bilirubin 1.0, Aspartate Amino Transf (AST/SGOT) 11, Alanine Aminotransferase (ALT/SGPT) 10, Alkaline Phosphatase 40, Total Protein 5.6L, Albumin 3.6 Assessment/Plan Assessment/Plan Assess & Plan/Chief Complaint 1. Drug overdose of tramadol as well as Ativan -Patient admitted for observation -Monitor cardiopulmonary status 05/08 -Patient more alert and coherent this morning. Will discontinue the Ray catheter and allow her to eat regular diet. -network services project manager consultation 2. Depressiontreated in the past -Will restart antidepressants prior to dismissal or after dismissal 05/08 -Most likely this will be started outpatient Clinical Quality Measures Admission Status Admission Dx 1. Drug overdose of tramadol as well as Ativan 2. Depressiontreated in the past DVT/VTE Risk/Contraindication: Risk Factor Score Per Nursin RFS Level Per Nursing on Admit: 1=Low/No VTE PPX ALONZO GOLDBERG MD May 08, 2019 06:41
--- NOTE | 2019-05-08 07:15 | NUR ---
jackman catheter removed at this time by this RN. pt tolerated well
[2019-05-08 07:44] VITALS: BP 109/71
--- NOTE | 2019-05-08 09:22 | NUR ---
POISON CONTROL CALLED ABOUT PT -- PT MORE ALERT -- SOMEWHAT FATIGUED -- VSS -- POISON CONTROL HAS SIGNED OFF THE CASE BUT IF THEY ARE NEEDED TO CALL THEM --
--- NOTE | 2019-05-08 09:42 | NUR ---
ISHAAN NICOLASA WAS CALLED -- [phone] -- GAVE THEM PT INFO AND THEY VOICED THEY WOULD TALK TO [facility] AND GAVE HIM THE FLOOR NUMBER -- HE VOICED THAT [facility] WOULD BE CALLING
--- NOTE | 2019-05-08 11:19 | NUR ---
1100 STAFF HERE FOR MENTAL HEALTH SCREENING
[2019-05-08 12:00] VITALS: BP 92/53
[2019-05-08 14:38] VITALS: BP 92/53
== END 2019-05-08 14:38 | disposition home or self-care (01) ==
LOC: EDUNIT# 10:02 → ER 10:03 → 4TH 10:57 → EEVIPCON 10:57 → 4TH 14:43
PROVIDERS: ADMIT Family Medicine; ATTEND Family Medicine
DX: T44.7X4A Poisoning by beta-adrenoreceptor antagonists, undetermined, initial encounter (principal); T42.4X4A Poisoning by benzodiazepines, undetermined, initial encounter; S06.0X9A Concussion with loss of consciousness of unspecified duration, initial encounter; I10 Essential (primary) hypertension; M19.90 Unspecified osteoarthritis, unspecified site; F32.9 Major depressive disorder, single episode, unspecified; Z98.51 Tubal ligation status; Z79.899 Other long term (current) drug therapy
CPT/HCPCS: 36415; 51702; 80053; 80306; 80320; 80329; 81000; 85025; 93005; 96360; G0378

== ENCOUNTER → 2022-06-17 | Outpatient (CLI) | payer MEDICAID ==
[~2022-06-17] MED LIST changes: +CLIN-144 PO; -CLIN300C11 PO; +OMEP20TA56 PO; -OMEP20TA7 PO; -SULF1TAB35 PO; +SULF1TAB38 PO
--- NOTE | 2022-06-17 11:18 | Diagnostic Imaging Report ---
INDICATION: Right knee pain post fall. TECHNIQUE: AP, oblique, and lateral views of the right knee were obtained. FINDINGS: No fracture or acute bony abnormality is seen. The joint spaces are unremarkable. IMPRESSION: Negative right knee. Dictated by: Dictated on workstation # [id number]
== END ==
LOC: RAD 08:21
PROVIDERS: ATTEND Family Medicine
DX: M25.561 Pain in right knee (principal)
CPT/HCPCS: 73562

== ENCOUNTER 2022-06-30 07:51 | Emergency (ER) | payer MEDICAID ==
[~2022-06-30] VITALS: Ht 165 cm; Wt 104.0 kg
[2022-06-30 08:00] VITALS: BP 99/75
--- NOTE | 2022-06-30 08:24 | ED Cough/URI ---
General Chief Complaint: Cough/Cold/Flu Symptoms Stated Complaint: COUGH | CHEST CONGESTION | SORE THROAT Source: patient Exam Limitations: no limitations History of Present Illness Date Seen by Provider: Jun 30, 2022 Time Seen by Provider: 08:00 Initial Comments Patient is a 37-year-old female who presents to the emergency room with a chief complaint of cough, congestion, runny nose, earache, sore throat. She is not COVID or flu vaccinated. She does not take any daily medications nor have to use inhalers. Smoking history. Took some DayQuil today. Has had contact with her 1-year-old child who has had similar symptoms for the past 4 days. States her cough is productive. No abdominal pain, nausea or vomiting. No GI or symptoms. No rashes. No allergies to medications. Timing/Duration: other (3 days) Severity/Quality: moderate, sputum Prior Episodes/Possible Cause: occasional episodes Associated Symptoms: cough, headache, nasal congestion, nasal drainage Allergies and Home Medications Allergies Coded Allergies: No Known Drug Allergies (Verified , 04/09/07) Patient Home Medication List Home Medication List Reviewed: Yes No Active Prescriptions or Reported Meds Review of Systems Review of Systems Constitutional: see HPI EENTM: nose congestion, throat pain Respiratory: cough, phlegm Cardiovascular: no symptoms reported Gastrointestinal: no symptoms reported Genitourinary: no symptoms reported Musculoskeletal: no symptoms reported Skin: no symptoms reported Psychiatric/Neurological: Headache All Other Systems Reviewed Negative Unless Noted: Yes Past Bcqjmia-Rqkddk-Veprey Hx Immunizations Up To Date Tetanus Booster (TDap): Unknown Seasonal Allergies Seasonal Allergies: Yes Past Medical History Surgeries: Yes ( bilat salpingectomy) Tubal Ligation Respiratory: No Cardiac: No Neurological: Yes Concussion Reproductive Disorders: Yes (Salpingectomy bilat) Female 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 0.0oz. 82.099336ro; 31.14 BMI Method:Stated General Appearance: WD/WN, no apparent distress HEENT: normal ENT inspection, TMs normal, pharynx normal Neck: full range of motion, lymphadenopathy (R), lymphadenopathy (L) Respiratory: lungs clear, normal breath sounds, no respiratory distress, no accessory muscle use Cardiovascular: regular rate, rhythm Extremities: normal range of motion Neurologic/Psychiatric: no motor/sensory deficits, alert, normal mood/affect, oriented x 3 Skin: normal color, warm/dry Progress/Results/Core Measures Suspected Sepsis SIRS Temperature: Pulse: Respiratory Rate: Blood Pressure / Mean: Results/Orders Lab Results Laboratory Tests Test 06/30/22 08:20 Range/Units Influenza Type A (RT-PCR) Not Detected Not Detecte Influenza Type B (RT-PCR) Not Detected Not Detecte SARS-CoV-2 RNA (RT-PCR) Not Detected Not Detecte My Orders Orders - ALEKS KNIGHT MD Covid 19 Inhouse Test (06/30/22 08:27) Influenza A And B By Pcr (06/30/22 08:27) Isolation Central Supply Req (06/30/22 08:27) Vital Signs/I&O 06/30/22 08:00 Temp 36.3 Pulse 88 Resp 18 B/P (MAP) 99/75 (83) O2 Delivery Room Air Capillary Refill : Counseling-Symptomatic: 3-10 Minutes Follow-up with PCP to: Discuss Further Options Departure Impression Primary Impression: Bronchitis Disposition: 01 HOME, SELF-CARE Condition: Stable Departure-Patient Inst. Decision time for Depature: 09:26 Referrals: ALONZO GOLDBERG MD (PCP/Family) Primary Care Physician Patient Instructions: Bronchitis, Adult ED Add. Discharge Instructions: Drink plenty of fluids to stay well-hydrated. Continue to take dbov-dhr-bcjhejy DayQuil/NyQuil for symptoms. You can also take sedt-naz-jtkvtpr ibuprofen 3 tablets which is 600 mg every 6 hours with food as needed for body aches and fever. Take the antibiotic, azithromycin as directed daily for the next 5 days. Return to the emergency department for any new, concerning or emergent complaints. You really should try to decrease the amount you are smoking especially while you are sick. Scripts Azithromycin (Azithromycin) 250 Mg Tablet 250 MG PO UD, #6 TAB TAKE 2 TABLETS ON DAY ONE THEN TAKE 1 TABLET DAILY FOR FOUR MORE DAYS Prov: ALEKS KNIGHT MD 06/30/22 Copy Copies To 1: ALONZO GOLDBERG MD, KATHRYN M MD Jun 30, 2022 08:24
[2022-06-30] MEDS ORDERED: AZIT250T12 PO (09:28)
== END 2022-06-30 09:45 | disposition home or self-care (01) ==
LOC: EDUNIT# 07:51 → ER 07:53
DX: J40 Bronchitis, not specified as acute or chronic (principal); Z20.822 Contact with and (suspected) exposure to COVID-19; Z28.310 Unvaccinated for COVID-19
CPT/HCPCS: 87636; 99283